=== PATIENT | male | born 1945 | race Caucasian/White ===

== ENCOUNTER → 2021-04-07 11:12 | Outpatient (BNVA) | payer MEDICARE, SELFPAY | PROVIDERS: PCP Internal Medicine Sports Medicine; Visit Provider Urology | DX: N40.1 Benign prostatic hyperplasia with lower urinary tract symptoms (principal); N52.01 Erectile dysfunction due to arterial insufficiency | CPT/HCPCS: 51798; 99212 ==

== ENCOUNTER 2022-03-01 10:33 | Outpatient (REF) | payer MEDICARE, SELFPAY ==
[2022-03-01 12:15] LABS: PSA,Total (Free>4and<10) 0.77 ng/mL (0.00-4.00)
== END 2022-03-01 10:34 | disposition home or self-care (01) ==
LOC: HO.HMGCLDS 10:33
PROVIDERS: PCP Pediatrics; Visit Provider Urology
DX: Z12.5 Encounter for screening for malignant neoplasm of prostate (principal); N13.8 Other obstructive and reflux uropathy; N40.1 Benign prostatic hyperplasia with lower urinary tract symptoms
CPT/HCPCS: 36415; 84153

== ENCOUNTER → 2022-03-09 08:04 | Outpatient (BNVA) | payer MEDICARE, SELFPAY | PROVIDERS: Visit Provider Urology | DX: N52.01 Erectile dysfunction due to arterial insufficiency (principal); N40.1 Benign prostatic hyperplasia with lower urinary tract symptoms; R39.15 Urgency of urination; R35.1 Nocturia; N39.0 Urinary tract infection, site not specified | CPT/HCPCS: 51798; 99212 ==

== ENCOUNTER → 2022-06-09 13:58 | Outpatient (BNVA) | payer MEDICARE, SELFPAY | PROVIDERS: PCP Pediatrics; Visit Provider Urology | DX: N52.01 Erectile dysfunction due to arterial insufficiency (principal); N40.1 Benign prostatic hyperplasia with lower urinary tract symptoms; Z79.899 Other long term (current) drug therapy | CPT/HCPCS: Q3014 ==

== ENCOUNTER 2023-02-16 08:48 | Outpatient (AMB) | payer MEDICARE, SELFPAY ==
--- NOTE | 2023-02-16 08:55 | A.OFFVIS_ITS ---
Intake Intake Visit Reasons: 6m follow up/PVR Intake Note: Patient is present for Follow Up PVR Urology Med: Finasteride, Terazosin Antibiotic Allergy: None Blood Thinner: Xarelto [facility]acy: [facility] PVR: 3ml Allergies No Known Allergies Allergy (Verified 02/16/23 08:58) HPI HPI Comments History of Present Illness Details ?Clifton SHARPE is a very pleasant male. He is a patient of Dr York. He is seen for the following urologic conditions. - lower urinary tract symptoms PVR low Urinary performance improved significantly after pacemaker placed a few weeks ago On terazosin 5 mg per day - otherwise gets some dizziness Cut finasteride back to Tuesday, Tuesday, Tuesday Lower Urinary Tract Symptoms:? Current visit is for?further evaluation of, lower urinary tract symptoms, predominate obstructive symptoms - Good response to maximum terazosin. Has noticed improved stream. Did have some dizziness.? Current treatment includes?07/07, terazosin 10mg, finasteride ? Prior treatments include?since 2009 flomax/tamsulosin, 5-alpha reductase ?- stopped 5AR due to SE concerns.? Prostate Symptom Score?Moderate (9-19), Bother 3 ? Symptoms include?07/07 , incomplete emptying, weak stream, nocturia (>2), and are progressing ?07/07 , urgency, nocturia (>2), and are improving.? Results from testing include? cystoscopy ?> 4 cm prostate urethral length, apple shaped intrusion 07/07 ? Prior Prostate Score?moderate.? PSA?2016 2.8, 03/11 0.77? Prostate volume?30-50gm.? Associated conditions? CAD ?Yes stent 2007 ? CVA ?No ? diabetes ?No ? Testing at next visit will include?bladder scan, uroflow.? PFSH Medical History Benign prostatic hyperplasia with lower urinary tract symptoms Erectile dysfunction due to arterial insufficiency Heart attack Hyperlipidemia Poor urinary stream Surgical History History of surgery Review of Systems Const Denies chills and Denies fever(s) Card Reports no additional complaints and Denies syncope Resp Denies cough GI Denies abdominal pain and Denies heartburn Reports as per HPI and Denies change in libido Neuro Denies syncope Psych Denies change in libido Endo Denies change in libido Physical Exam Const General: cooperative, healthy appearing, comfortable and no acute distress Orientation/consciousness: patient oriented x3 HEENT Face and sinus: Yes normal facial exam Mouth: moist mucous membranes Neck Neck: Yes normal visual inspection, Yes full ROM and Yes trachea midline Chest Chest palpation & inspection: normal inspection of the chest Resp Effort & Inspection: normal respiratory effort, able to speak in complete s entences and no respiratory distress GI Inspection: Yes normal to inspection Back/Spine/Pelvis Cervical Spine: normal cervical lordosis Thoracic/Lumbar Spine: thoracic and lumbar spine normal to inspection Skin General skin exam: no rashes or lesions noted Neuro General: patient oriented x3, gait normal, tone normal and moves all extremities Extrem General: Yes normal to inspection and Yes capillary refill normal Office Procedures Post Void Residual Post Residual Void Post Void Residual (PVR): 3 [id number] Void Residual by ultrasound Results AMB Urinalysis, Automated UA Leukoctes 0 [place]/uL Last Edit by VILLA Roper on 02/16/23 09:34 UA Nitrite Negative Last Edit by VILLA Roper on 02/16/23 09:34 UA Urobilinogen 0.2 mg/dL Last Edit by VILLA Roper on 02/16/23 09:3 4 UA Protein 0 mg/dL Last Edit by VILLA Roper on 02/16/23 09:34 UA pH 5.5 Last Edit by VILLA Roper on 02/16/23 09:34 UA Blood 10 Shawn/uL Last Edit by VILLA Roper on 02/16/23 09:34 UA Specific [place] 1.020 Last Edit by VILLA Roper on 02/16/23 09: 34 UA Ketone Negative Last Edit by Toshia Reyes, RMA on 02/16/23 09:34 UA Bilirubin 0 mg/dL Last Edit by Toshia Reyes, RMA on 02/16/23 09:34 UA Glucose 0 mg/dL Last Edit by Toshia Reyes, RMA on 02/16/23 09:34 Results Reviewed Results Reviewed: Laboratory Last Values Urine pH (Auto) 5.5 02/16/23 08:59 Specific [place] (Auto) 1.020 02/16/23 08:59 Urine Protein (Auto) 0 mg/dL 02/16/23 08:59 Glucose (UA)(Auto) 0 mg/dL 02/16/23 08:59 Urine Ketones (Auto) Negative 02/16/23 08:59 Urine Blood (Auto) 10 Shawn/uL 02/16/23 08:59 Urine Nitrite (Auto) Negative 02/16/23 08:59 Urine Bilirubin (Auto) 0 mg/dL 02/16/23 08:59 Urine Urobilinogen (Auto) 0.2 mg/dL 02/16/23 08:59 Leukocyte Esterase (Auto) 0 [place]/uL 02/16/23 08:59 Assessment & Plan Assessment & Plan (1) Urinary tract infection: Code(s): N39.0 - Urinary tract infection, site not specified (2) Erectile dysfunction due to arterial insufficiency: Code(s): N52.01 - Erectile dysfunction due to arterial insufficiency (3) Benign prostatic hyperplasia with lower urinary tract symptoms: Code(s): N40.1 - Benign prostatic hyperplasia with lower urinary tract symptoms Plan Twelve month follow-up Orders: Orders AMB Urinalysis Automated Today Z13.9 - Encounter for screening, unspecified AMB Post Void Residual by ultrasound Today N40.1 - Benign prostatic hyperplasia with lower urinary tract symptoms Prostate Specific Antigen 364 Days N40.1 - Benign prostatic hyperplasia with lower urinary tract symptoms Patient Instructions: Imaging studies, laboratory and physical exam results were discussed and reviewed in detail. No major barriers to patient understanding were identified. An opportunity to ask questions regarding the treatment plan was provided. All questions were answered. The patient expressed understanding and agreement with the above treatment plan. The patient is aware they should contact our office by phone for worsening of their current condition or the appearance of new urologic symptoms. Compliance is encouraged with any medications and followup testing that is ordered. It is a privilege to participate in the urologic care of your patient. If you have any questions or concerns regarding treatment for the above conditions, or other urologic issues, please do not hesitate to contact me. The office telephone contact is [phone]. This note is constructed using voice recognition software. While every effort has been made to ensure accuracy garment patternmaker errors may have been included. Yours sincerely, Dr Nathaniel Mora MD, [facility] - Urology Providers of Expert, Compassionate Care for the Genitourinary System Coding Level of Care Code Est Pt Level 3 (97984) Diagnoses Urinary tract infection N39.0 Erectile dysfunction due to arterial insufficiency N52.01 Benign prostatic hyperplasia with lower urinary tract symptoms N40.1 CPT Codes Post Residual Void - PVR CPT Code: 80870-Zmnu Void Residual by ultrasound ([id number])
== END 2023-02-16 10:06 | disposition home or self-care (01) ==
PROVIDERS: PCP Pediatrics; Visit Provider Urology
DX: N39.0 Urinary tract infection, site not specified (principal); N52.01 Erectile dysfunction due to arterial insufficiency; N40.1 Benign prostatic hyperplasia with lower urinary tract symptoms; Z13.9 Encounter for screening, unspecified
CPT/HCPCS: 99213

== ENCOUNTER → 2023-02-16 08:48 | Outpatient (BNVA) | payer MEDICARE, SELFPAY | PROVIDERS: Visit Provider Urology | DX: N39.0 Urinary tract infection, site not specified (principal); N52.01 Erectile dysfunction due to arterial insufficiency; N40.0 Benign prostatic hyperplasia without lower urinary tract symptoms | CPT/HCPCS: 51798; 81003; 99212 ==

== ENCOUNTER 2024-04-17 10:55 | Outpatient (AMB) | payer MEDICARE, SELFPAY ==
--- NOTE | 2024-04-17 11:27 | MHC.OFFVIS ---
Intake Visit Reasons: 1Y PVR/PSA(set) Intake Note: Patient is Present for PVR/PSA Urology Med:Terazosin, Finasteride Antibiotic Allergy:None Blood Thinner: Xarelto Last PVR: 3ml Todays PVR:59ml Patient states he is doing well on terazosi Recent PSA: 04/12/24 PSA: 0.9 Tire Beader Maker Required: No Accompanied by: Self / Same As Patient Allergies No Known Allergies Allergy (Verified 04/17/24 11:28) HPI Comments Details: ?Clifton SHARPE is a very pleasant male. He is a patient of Dr York. He is seen for the following urologic conditions. - lower urinary tract symptoms Twelve month follow-up Urinary performance improved significantly after pacemaker placed On terazosin 5 mg per day - otherwise gets some dizziness Finasteride back to Tuesday, Tuesday, Tuesday Would like to switch from sildenafil to tadalafil Prescription 20 mg on demand Lower Urinary Tract Symptoms:? Current visit is for?further evaluation of, lower urinary tract symptoms, predominate obstructive symptoms - Good response to maximum terazosin. Has noticed improved stream. Did have some dizziness.? Current treatment includes?07/07, terazosin 10mg, finasteride ? Prior treatments include?since 2009 flomax/tamsulosin, 5-alpha reductase ?- stopped 5AR due to SE concerns.? Prostate Symptom Score?Moderate (9-19), Bother 3 ? Symptoms include?07/07 , incomplete emptying, weak stream, nocturia (>2), and are progressing ?07/07 , urgency, nocturia (>2), and are improving.? Results from testing include? cystoscopy ?> 4 cm prostate urethral length, apple shaped intrusion 07/07 ? Prior Prostate Score?moderate.? PSA?2016 2.8, 03/11 0.77, 04/12 0.9 ? Prostate volume?30-50gm.? Associated conditions? CAD ?Yes stent 2006 ? CVA ?No ? diabetes ?No ? Testing at next visit will include?bladder scan, uroflow.? [facility] Medical History Benign prostatic hyperplasia with lower urinary tract symptoms Erectile dysfunction due to arterial insufficiency Heart attack Hyperlipidemia Poor urinary stream Surgical History History of surgery Review of Systems Const Denies chills and Denies fever(s) Card Reports no additional complaints and Denies syncope Resp Denies cough GI Denies abdominal pain and Denies heartburn Reports as per HPI and Denies change in libido Neuro Denies syncope Psych Denies change in libido Endo Denies change in libido Physical Exam Const General: cooperative, healthy appearing, comfortable and no acute distress Orientation/consciousness: patient oriented x3 HEENT Face and sinus: Yes normal facial exam Mouth: moist mucous membranes Neck Neck: Yes normal visual inspection, Yes full ROM and Yes trachea midline Chest Chest palpation & inspection: normal inspection of the chest Resp Effort & Inspection: normal respiratory effort, able to speak in complete sentences and no respiratory distress GI Inspection: Yes normal to inspection Back/Spine/Pelvis Cervical Spine: normal cervical lordosis Thoracic/Lumbar Spine: thoracic and lumbar spine normal to inspection Skin General skin exam: no rashes or lesions noted Neuro General: patient oriented x3, gait normal, tone normal and moves all extremities Extrem General: Yes normal to inspection and Yes capillary refill normal Office Procedures Post Void Residual Post Residual Void Post Void Residual (PVR): 59 [id number] Void Residual by ultrasound Results AMB Urinalysis, Automated UA Leukoctes 0 [place]/uL Last Edit by VILLA Roper on 04/17/24 11:38 UA Nitrite Negative Last Edit by VILLA Roper on 04/17/24 11:38 UA Urobilinogen 0.2 mg/dL Last Edit by VILLA oRper on 04/17/24 11:38 UA Protein 15 mg/dL Last Edit by VILLA Roper on 04/17/24 11:38 UA pH 5.5 Last Edit by VILLA Roper on 04/17/24 11:38 UA Blood 0 Shawn/uL Last Edit by Toshia Reyes, RMA on 04/17/24 11:38 UA Specific [place] 1.030 Last Edit by Toshia Reyes, RMA on 04/17/24 11:38 UA Ketone Negative Last Edit by Toshia Reyes, RMA on 04/17/24 11:38 UA Bilirubin 0 mg/dL Last Edit by Toshia Reyes, RMA on 04/17/24 11:38 UA Glucose 0 mg/dL Last Edit by Toshia Reyes, RMA on 04/17/24 11:38 Results Reviewed Results Reviewed: Laboratory Last Values Urine pH (Auto) 5.5 04/17/24 11:28 Specific [place] (Auto) 1.030 04/17/24 11:28 Urine Protein (Auto) 15 mg/dL 04/17/24 11:28 Glucose (UA)(Auto) 0 mg/dL 04/17/24 11:28 Urine Ketones (Auto) Negative 04/17/24 11:28 Urine Blood (Auto) 0 Shawn/uL 04/17/24 11:28 Urine Nitrite (Auto) Negative 04/17/24 11:28 Urine Bilirubin (Auto) 0 mg/dL 04/17/24 11:28 Urine Urobilinogen (Auto) 0.2 mg/dL 04/17/24 11:28 Leukocyte Esterase (Auto) 0 [place]/uL 04/17/24 11:28 Assessment & Plan Assessment & Plan (1) Benign prostatic hyperplasia with lower urinary tract symptoms: Code(s): N40.1 - Benign prostatic hyperplasia with lower urinary tract symptoms Category: Medical (2) Erectile dysfunction due to arterial insufficiency: Code(s): N52.01 - Erectile dysfunction due to arterial insufficiency Category: Medical Plan Trial tadalafil Three-month follow-up Orders: Orders AMB Urinalysis Automated 04/17/24 Z13.9 - Encounter for screening, unspecified AMB Post Void Residual by ultrasound 04/17/24 N40.1 - Benign prostatic hyperplasia with lower urinary tract symptoms Patient Instructions: Imaging studies, laboratory and physical exam results were discussed and reviewed in detail. No major barriers to patient understanding were identified. An opportunity to ask questions regarding the treatment plan was provided. All questions were answered. The patient expressed understanding and agreement with the above treatment plan. The patient is aware they should contact our office by phone for worsening of their current condition or the appearance of new urologic symptoms. Compliance is encouraged with any medications and followup testing that is ordered. It is a privilege to participate in the urologic care of your patient. If you have any questions or concerns regarding treatment for the above conditions, or other urologic issues, please do not hesitate to contact me. The office telephone contact is [phone]. This note is constructed using voice recognition software. While every effort has been made to ensure accuracy senior marketing associate errors may have been included. Yours sincerely, Dr Nathaniel Mora MD, [facility] - Urology Providers of Expert, Compassionate Care for the Genitourinary System Coding Level of Care Code Est Pt Level 3 (35042) Diagnoses Benign prostatic hyperplasia with lower urinary tract symptoms N40.1 Erectile dysfunction due to arterial insufficiency N52.01 CPT Codes Post Residual Void - PVR CPT Code: 98168-[id number] Void Residual by ultrasound ([id number])
== END 2024-04-17 12:09 | disposition home or self-care (01) ==
LOC: HO.HUSH 10:56
PROVIDERS: PCP Pediatrics; Visit Provider Urology
DX: N40.1 Benign prostatic hyperplasia with lower urinary tract symptoms (principal); N52.01 Erectile dysfunction due to arterial insufficiency
CPT/HCPCS: 99213

== ENCOUNTER → 2024-04-17 10:55 | Outpatient (BNVA) | payer MEDICARE, SELFPAY | PROVIDERS: PCP Pediatrics; Visit Provider Urology | DX: N40.1 Benign prostatic hyperplasia with lower urinary tract symptoms (principal); N13.8 Other obstructive and reflux uropathy; N52.01 Erectile dysfunction due to arterial insufficiency | CPT/HCPCS: 51798; 81003; 99212 ==

== ENCOUNTER 2024-07-17 09:09 | Outpatient (AMB) | payer MEDICARE, SELFPAY ==
--- NOTE | 2024-07-17 09:10 | MHC.OFFVIS ---
Intake Visit Reasons: [employer] Review(Tadalafil) Intake Note: Patient is present for [facility] REVIEW Urology Medication:TERAZOSIN,FINASTERIDE,SILDENAFIL Antibiotic Allergy:NONE Blood Thinner:RIVAROXABAN Resources Representative Required: No Allergies No Known Allergies Allergy (Verified 07/17/24 09:11) HPI Comments Details: ?Clifton SHARPE is a very pleasant male. He is a patient of Dr York. He is seen for the following urologic conditions. - lower urinary tract symptoms - erectile dysfunction Telemedicine Evaluation 15 min Consultation [employer] Ru Video Urinary performance improved significantly after pacemaker placed On terazosin 5 mg per day - otherwise gets some dizziness Finasteride back to Tuesday, Tuesday, Tuesday Switched erectile medications to Cialis 20 mg on demand Also will try switching from terazosin to alfuzosin to see if this has less impact on dizziness in energy Lower Urinary Tract Symptoms:? Current visit is for?further evaluation of, lower urinary tract symptoms, predominate obstructive symptoms - Good response to maximum terazosin. Has noticed improved stream. Did have some dizziness.? Current treatment includes?07/07, terazosin 10mg, finasteride ? Prior treatments include?since 2009 flomax/tamsulosin, 5-alpha reductase ?- stopped 5AR due to SE concerns.? Prostate Symptom Score?Moderate (9-19), Bother 3 ? Symptoms include?07/07 , incomplete emptying, weak stream, nocturia (>2), and are progressing ?07/07 , urgency, nocturia (>2), and are improving.? Results from testing include? cystoscopy ?> 4 cm prostate urethral length, apple shaped intrusion 07/07 ? Prior Prostate Score?moderate.? PSA?2016 2.8, 03/11 0.77, 04/12 0.9 ? Prostate volume?30-50gm.? Associated conditions? CAD ?Yes stent 2006 ? CVA ?No ? diabetes ?No ? Testing at next visit will include?bladder scan, uroflow.? PFSH Medical History Benign prostatic hyperplasia with lower urinary tract symptoms Erectile dysfunction due to arterial insufficiency Heart attack Hyperlipidemia Poor urinary stream Surgical History History of surgery Review of Systems Const All systems reviewed & are unremarkable except as noted in HPI and below Reports no additional complaints Resp Reports no additional complaints GI Reports no additional complaints Reports as per HPI Musc Reports no additional complaints Physical Exam Telemedicine evaluation Appropriate responses Regular breathing rate and rhythm HEENT Head: Yes normal to inspection Ears: hearing grossly normal bilaterally Eyes General: appearance normal, both eyes and all related structures Neck Neck: Yes normal visual inspection Chest Chest palpation & inspection: normal inspection of the chest Resp Effort & Inspection: normal respiratory effort and able to speak in complete sentences Telehealth Telehealth Telehealth Platform: [employer] Location of provider rendering services: practice address Location of patient: address on file Patient Identification confirmed using: Name, : Yes Telehealth method: video Patient verbally consented to treatment: Yes Patient verbally consented to billing insurance company: Yes Patient informed of any privacy concerns related to visit: Yes Minutes spent on Phone/Video with Pt.: 15 Assessment & Plan Assessment & Plan (1) Erectile dysfunction due to arterial insufficiency: Code(s): N52.01 - Erectile dysfunction due to arterial insufficiency Category: Medical (2) Benign prostatic hyperplasia with lower urinary tract symptoms: Code(s): N40.1 - Benign prostatic hyperplasia with lower urinary tract symptoms Category: Medical Plan Six-month follow-up Medications: New alfuzosin ER Take before bedtime 10 mg PO BEDTIME 30 days 30 tabs 1RF N40.1 - Benign prostatic hyperplasia with lower urinary tract symptoms tadalafil On demand medication take 60 minutes before intended [id number] 20 mg PO ONCE 30 days PRN 30 tabs 0RF sexual activity N52.01 - Erectile dysfunction due to arterial insufficiency Patient Instructions: Imaging studies, laboratory and physical exam results were discussed and reviewed in detail. No major barriers to patient understanding were identified. An opportunity to ask questions regarding the treatment plan was provided. All questions were answered. The patient expressed understanding and agreement with the above treatment plan. The patient is aware they should contact our office by phone for worsening of their current condition or the appearance of new urologic symptoms. Compliance is encouraged with any medications and followup testing that is ordered. It is a privilege to participate in the urologic care of your patient. If you have any questions or concerns regarding treatment for the above conditions, or other urologic issues, please do not hesitate to contact me. The office telephone contact is [phone]. This note is constructed using voice recognition software. While every effort has been made to ensure accuracy mass communications instructor errors may have been included. Yours sincerely, Dr Nathaniel Mora MD, [facility] - Urology Providers of Expert, Compassionate Care for the Genitourinary System Coding Level of Care Code Tele Est Pt Level 4 (95935) Diagnoses Erectile dysfunction due to arterial insufficiency N52.01 Benign prostatic hyperplasia with lower urinary tract symptoms N40.1
--- OUTSIDE RECORDS SUMMARY | 2024-07-17 09:35 | XMS_ITS | Clinical Summary ---
Author Organization [facility] [address] [facility] lding Address [address] [place] [address] Phone Care Team Providers Care [employer] Material Inspector Name Role Phone Tristin Caldwell MD Primary Care Provider [phone] Allergies No known active allergies Medications Medication Sig Dispensed Refills Start Date End Date Status atorvastatin (LIPITOR) 80 mg tablet TAKE 1 TABLET BY MOUTH EVERY DAY IN THE EVENING 90 tablet 1 04/25/2024 Active aspirin 81 mg EC tablet Take 1 tablet (81 mg total) by mouth. Active atorvastatin (LIPITOR) 80 mg tablet Take 1 tablet (80 mg total) by mouth 1 (one) time each day in the evening. Active finasteride (PROSCAR) 5 mg tablet Take 1 tablet (5 mg total) by mouth 1 (one) time each day. Active terazosin (HYTRIN) 5 mg capsule Take 1 capsule (5 mg total) by mouth. at bedtime Active sildenafil (REVATIO) 20 mg tablet TAKE 1-2 TABLETS BY MOUTH AT BEDTIME NEEDED FOR ERECTILE DYSFUNCTION. 09/07/2023 Active Xarelto 20 mg tablet TAKE 1 TABLET BY MOUTH DAILY WITH EVENING MEAL 90 tablet 1 06/26/2024 Active famotidine (PEPCID) 40 mg tablet Take 1 tablet (40 mg total) by mouth 1 (one) time each day. 90 tablet 1 06/26/2024 Active cholecalciferol (VITAMIN D-3) 50 mcg (2,000 unit) capsule Take 1 capsule (2,000 Units total) by mouth 1 (one) time each day. 90 capsule 1 06/26/2024 Active cholecalciferol (VITAMIN D-3) 50 mcg (2,000 unit) capsule Take 1 capsule (2,000 Units total) by mouth 1 (one) time each day. 04/09/2024 5 Discontinued(Reor belle) famotidine (PEPCID) 40 mg tablet Take 1 tablet (40 mg total) by mouth 1 (one) time each day. 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 LV systolic function is normal. Will continue current regimen. Due for lipid profile. Assessment & Plan (07/16/2024 4:16 PM EST): Orders: ECG 12 lead CKD (chronic kidney disease), stage III 05/16/20 24 Rheumatoid arthritis 05/16/2024 Overview (05/16/2024): Since age 30, congenital arm deformations. Hypertension 10/10/2023 Pacemaker 10/10/2023 Anemia 08/20/2022 Overview (05/16/2024): 2. Mild, stable. Iron etc normal. B12 low normal Syncope 04/16/2022 Overview (05/16/2024): Last Assessment & Plan: Most likely caused by conversion pauses. He was documented to have pulse rate 20-30's with syncope and EKG immediate post syncope showed sinus rate of 40s. He was also hypotensive. His heart rate with atrial fibrillation was slightly higher and we could not give medication due to sinus bradycardia. There is enough evidence that he would benefit from pacemaker. We will arrange dual-chamber pacemaker. 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 Ideally, would like to start him on low-dose metoprolol, however his symptoms suggest he might be mildly hypotensive after taking terazosin. Will continue to monitor. Fatigue 04/15/2021 Overview (05/16/2024): Last Assessment & Plan: Could be medication related. His last ischemia work-up was 4 years ago. We will arrange exercise echocardiogram stress test. Osteoarthritis of right knee 01/09/2020 GERD (gastroesophageal reflux disease) 9 Hypercholesteremia 03/02/2019 Overview (05/16/2024): Last Assessment & Plan: Well-controlled. Old FL (myocardial infarction) 03/02/2019 Osteoarthritis 03/02/2019 Overview (05/16/2024): R knee BPH (benign prostatic hyperplasia) 11/23/2018 Overview (05/16/2024): Seen by urology at the [facility] 01/11/2020 Erectile dysfunction 11/23/2018 Encounters Date Type Department Care Team Description 07/16/2024 3:30 PM EST Office Visit [facility] [address] [place] [address] Dk Terrazas MD Coronary artery disease, unspecified vessel or lesion type, unspecified whether angina present, unspecified whether chippewa-cree or transplanted heart (Primary Dx) 07/13/2024 Telephone Adult Medicine - [place] [address] [place] [address] Tristin Caldwell MD Referral for 07/16/2024 (To [facility]) 07/10/2024 9:50 AM EST Ancillary Procedure [facility] [address] [place] [address] 05/24/2024 4:30 PM EST Office Visit Adult Medicine - [facility] [address] [place] [address] Tristin Caldwell MD Cough, unspecified type (Primary Dx) 05/24/2024 Telephone Adult Medicine - [place] [address] [place] [address] Tristin Caldwell MD from Last 3 Months Immunizations Name Administration Dates Next Due Influenza trivalent, 0.5mL (Fluad) 65yo and olde r 04/19/2022,03/08/2020 Pfizer (ages 12 & older) Bivalent, COVID-19 03/22 Pfizer SARS-CoV-2 COVID-19, mRNA, LNP-S, preservative free 09/25/2021,03/22/2021 Pneumococcal polysaccharide 23 valent (Pneumovax 23) 2yo and older 02/17/2021 Td Tetanus diptheria (Tdvax) 7yo and older 08/06 Surgical History Surgery Date Site/Laterality Comments CHOLECYSTECTOMY 2010 PROCEDURE: HISTORICAL CHOLECYSTECTOMY TONSILLECTOMY 1951 PROCEDURE: HISTORICAL TONSILLECTOMY ANGIOPLASTY 2006 PROCEDURE: HISTORICAL ANGIOPLASTY W/STENT Medical History Medical History Date Comments BPH (benign prostatic hyperplasia) DX:BPH (benign prostatic hyperplasia) Erectile dysfunction DX:Erectile dysfunction CAD (coronary artery disease) DX :CAD (coronary artery disease); COMMENT: s/p PCI 2006, last stress 2017. Follows with Dr Terrazas CKD (chronic kidney disease) , stage III (CMS/HCC) DX:CKD (chronic kidney disea se), stage III (HCC) Rheumatoid arthritis (CMS/HCC) D X:Rheumatoid arthritis (HCC); COMMENT: Since age 30, congenital arm deformations. GERD (gastroesophageal reflux disease) DX:GERD (gastroesophageal reflux disease); COMMENT: Dr Bower, last colonoscopy 2012 Hyperlipidemia 03/02/2019 DX:Hyperlipidemi a Palencia's esophagus DX:Palencia's esophagus; COMMENT: w/ esophageal stricture Old FL (myocardial infarction) 03/02/2019 D X:Old FL (myocardial infarction) Osteoarthritis 03/02/2019 DX:Osteoarthriti s; COMMENT: R knee Family History Medical History Relation Name Comments No Known Problems Daughter 1 No Known Problems Daughter 2 No Known Problems Father No Known Problems Mother Alcohol abuse Sister Lung cancer Sister Other: tobacco abuse Sister No Known Problems Son 1 No Known Problems Son 2 Drug abuse Son 3 Relation Name Status Comments Daughter 1 Alive Daughter 2 Alive Father Mother Sister Alive Son 1 Alive Son 2 Alive Son 3 Alive Social History Tobacco Use Types Packs/Day Years Used Date Smoking Tobacco: Never Smokeless Tobacco: Never Alcohol Use Standard Drinks/Week Comments No 0 (1 standard drink = 0.6 oz pur e alcohol) Sex and Gender Information Value Date Recorded Sex Assigned at Not on file Gender Identity Not on file Sexual Orientation Not on file Job Start Date Occupation Industry Not on file Not on file Not on file Obstetrics History Last Filed Vital Signs Vital Sign Reading Time Taken Comments Blood Pressure 130/82 07/16/2024 3:07 PM EST Pulse 63 07/16/2024 3:07 PM EST Temperature 36.9 ??C (98.4 ??F) 05/24/2024 4:26 PM ES T Respiratory Rate - - Oxygen Saturation 96% 07/16/2024 3:07 PM EST Inhaled Oxygen Concentration - - Weight 84.8 kg (187 lb) 07/16/2024 3:07 PM EST Height 180.3 cm (5' 11 ) 07/16/2024 3:07 PM EST Body Mass Index 26.08 07/16/2024 3:07 PM EST Plan of Treatment Upcoming Encounters Date Type Department Care Team (Late st Contact Info) Description 07/23/2024 8:30 AM EST Ancillary Procedure [facility] - [facility] [address] [facility] [address] [place] [address] 10/16/2024 1:15 PM EDT Office Visit Adult Medicine - [place] [address] [place] [address] Tristin Caldwell MD [address] [place] [address] Health Maintenance Due Date Last Done Comments RSV Immunization Patients 60+ Years Old (1 - 1-dose 75+ series) 2021 Pneumococcal Vaccine: 65+ Years (2 of 2 - PCV) 02/17/2022 02/17/2021 Depression Screening 05/29/2022 Falls Risk Assessment 05/29/2022 Hepatitis C Screening 05/29/2022 Medicare Annual Wellness Visit 05/29/2022 Social Influencers of Health Screening 05/29/2022 Influenza Vaccine (#1) 2024 04/19/2022, 2019 COVID-19 Vaccine ( season) 2024 02/26/2024, 08/21/2023, 03/26/2023, Additional history exists Hypertension/CHF/CAD Annual BMP Blood Test 03/09/2025 03/09/2024, 03/09/2024, 03/09/2024, Additional history exists Cholesterol Screening (Lipid Panel) 04/12/2029 04/12/2024, 04/12/2024 DTaP,Tdap,and Td Vaccines (3 - Td or Tdap) 08/06/2031 08/06/2021, 12/17/2003 Zoster Vaccines Completed 03/26/2023, 09/25/2021 HIB Vaccines Aged Out No longer eligi ble based on patient's age to complete this topic HPV Vaccines Aged Out No longer eligi ble based on patient's age to complete this topic Hepatitis A Vaccines Aged Out No long er eligible based on patient's age to complete this topic Hepatitis B Vaccines Aged Out No long er eligible based on patient's age to complete this topic IPV Vaccines Aged Out No longer eligi ble based on patient's age to complete this topic MMR Vaccines Aged Out No longer eligi ble based on patient's age to complete this topic Meningococcal ACWY Vaccine Aged Out N o longer eligible based on patient's age to complete this topic RSV Immunization Patients Under 20 months Aged Out No longer eligible based on patient's age to complete this topic Varicella Vaccines Aged Out No longer eligible based on patient's age to complete this topic Medical Devices Implanted Type Area Tower Watchman Device Identifier Shelf Expiration Date Model / Serial / Lot Medt-Card Harjit Xt Dr Navas [id number] Implanted: (Quantity not on file) Cardiac Pacemaker [employer] - CARDIAC RHYTH-CRD HARJIT XT DR NAVAS [id number] / [id number] / Procedures Procedure Name Priority Date/Time Associated Diagnosis Comments ECG 12-LEAD Routine 07/16/2024 3:15 PM EST Coronary artery disease, unspecified vessel or lesion type, unspecified whether angina present, unspecified whether chippewa-cree or transplanted heart CARDIAC DEVICE CHECK- REMOTE- MURJ Routine 07/10/2024 9:46 AM EST LIPID PANEL Routine 04/12/2024 ANNUAL BMP BLOOD TEST Routine 03/09/2024 from Last 3 Months or Most Recently Relevant to Health Maintenance Results * ECG 12 lead (07/16/2024 3:15 PM EST) Ventricular Rate ECG 63 BPM GEMUSE Atrial Rate 63 BPM GEMUSE P-R Interval 210 ms GEMUSE QRS Duration 86 ms GEMUSE Q-T Interval 410 ms GEMUSE QTc 419 ms GEMUSE P Wave [place] 30 degrees GEMUSE R [place] 69 degrees GEMUSE T [place] 53 degrees GEMUSE ECG Interpretation Atrial-paced rhythm with prolonged AV conduction Abnormal ECG No previous ECGs available Confirmed by Brianna TERRAZAS, DK ([id number]) on 07/16/2024 4:08:59 PM GEMUSE 07/16/2024 3:15 PM EST 07/16/2024 4:08 PM EST Dk Terrazas MD ECG ORDERABLES GEMUSE * Cardiac device check - Remote- MURJ (07/10/2024 9:46 AM EST) Date Time Interrogation Session [id number] CV DEVICE CHECK Type Interrogation Session Remote CV DEVICE CHECK Implantable Pulse Generator Tower Watchman TONY CV DEVICE CHECK Implantable Pulse Generator Type IPG CV DEVICE CHECK Implantable Pulse Generator Model Harjit XT DR NAVAS [id number] CV DEVICE CHECK Implantable Pulse Generator Serial Number [id number] CV DEVICE CHECK Implantable Pulse Generator Implant Date [id number] CV DEVICE CHECK Battery Remaining Longevity 140.0 CV DEVICE CHECK Battery Voltage 3.030 CV D EVICE CHECK Battery BEADER Trigger 2.625 CV DEVICE CHECK Battery Status Middle of Service CV DEVICE CHECK González Statistic RA Percent Paced 81.51 CV DEVICE CHECK González Statistic RV Percent Paced 0.05 CV DEVICE CHECK Atrial Tachy Statistic AT/AF [place] Percent 0.00 CV DEVICE CHECK Lead Channel Sensing Intrinsic Amplitude 2.375 CV DEVICE CHECK Lead Channel Setting Sensing Sensitivity 0.30 CV DEVICE CHECK Lead Channel Impedance Value 532 CV DEVICE CHECK Lead Channel Pacing Threshold Amplitude 0.500 CV DEVICE CHECK Lead Channel Pacing Threshold Pulse Width 0.4 CV DEVICE CHECK Lead Channel RA Pacing Threshold Date 2024-07-01 CV DEVICE CHECK Lead Channel Setting Pacing Amplitude 1.500 CV DEVICE CHECK Lead Channel Setting Pacing Pulse Width 0.4 CV DEVICE CHECK Lead Channel Sensing Intrinsic Amplitude 7.500 CV DEVICE CHECK Lead Channel Setting Sensing Sensitivity 0.90 CV DEVICE CHECK Lead Channel Impedance Value 418 CV DEVICE CHECK Lead Channel Pacing Threshold Amplitude 0.625 CV DEVICE CHECK Lead Channel Pacing Threshold Pulse Width 0.4 CV DEVICE CHECK Lead Channel RV Pacing Threshold Date 2024-07-01 CV DEVICE CHECK Lead Channel Setting Pacing Amplitude 2.000 CV DEVICE CHECK Lead Channel Setting Pacing Pulse Width 0.4 CV DEVICE CHECK González Setting Mode (NBG Code) AAIR<=>DDDR CV DEVICE CHECK González Setting Lower Rate Limit 60 CV DEVICE CHECK González Setting AT Mode Switch Rate 171 CV DEVICE CHECK González Setting Maximum Tracking Rate 130 CV DEVICE CHECK González Setting Maximum Sensor Rate 130 CV DEVICE CHECK González Setting PAV Delay 180 CV DEVICE CHECK González Setting OMAR Delay 150 CV DEVICE CHECK Zone Setting Type Category AT/AF CV DEVICE CHECK Rate 171 CV DEVICE CHECK Therapies Some Rx Off CV DEVIC E CHECK Zone Setting Status Monitor CV DEVICE CHECK Zone ID 2 CV DEVICE CHECK Zone Setting Type Category VT CV DEVICE CHECK Rate 150 CV DEVICE CHECK Zone Setting Status ENABLED CV DEVICE CHECK Zone ID 6 CV DEVICE CHECK Date of Service 2024-07-13 CV DEVICE CHECK Anatomical Region Laterality Modality Device Interroga tion 07/01/2024 11:3 1 PM EST Impressions 07/10/2024 9:43 AM EST Normal Remote: With Events * Normal Device Function * Events or Alerts: 6 *Sinus Tachycardia * Battery: OK, 11.67 yrs * Sensing, impedance and thresholds reviewed * Programmed parameters reviewed * Presenting rhythm reviewed * Heart Rate Histograms reviewed Narrative Procedure Note Jaswinder Barnes MD - 07/10/2024 IMPRESSION: Normal Remote: With Events * Normal Device Function * Events or Alerts: 6 *Sinus Tachycardia * Battery: OK, 11.67 yrs * Sensing, impedance and thresholds reviewed * Programmed parameters reviewed * Presenting rhythm reviewed * Heart Rate Histograms reviewed Jaswinder Barnes MD CV IMPLANTABLE CARDI AC DEVICE PROCEDURES * (ABNORMAL) Lipid panel (04/12/2024) LDL/HDL Ratio 2 0 - 4 Triglycerides 75 0 - 150 mg/dL Cholesterol 88 0 - 200 mg/dL HDL 39(A) 40 mg/dL LDL Cholesterol 34 0 - 100 mg/dL Blood Venous blood specimen / Unknown Historical Provider LAB BLOOD ORDERAB LES * Annual BMP Blood Test (03/09/2024) Annual BMP Blood Test abstracted Historical Provider [facility] from Last 3 Months or Most Recently Relevant to Health Maintenance Care Teams [employer] Material Inspector Relationship Specialty Start Date End Date Tristin Caldwell MD [facility] [address] [place] [id number] PCP - General 04/27/22
--- OUTSIDE RECORDS SUMMARY | 2024-07-17 09:36 | XMS_ITS | Encounter Summary ---
Author Organization [facility] Address [address] [place] [address] Care Team Providers Care Lasting Machine Operator Bed Name Role Phone Tristin Caldwell MD Primary Care Provider [phone] Reason for Visit * Reason Comments Follow-up Encounter Details Date Type Department Care Team ([facility] st Contact Info) Description 07/16/2024 3:30 PM EST Office Visit [facility] - [facility] [address] [facility] [address] [place] [id number] Senia Terrazas MD [address] [place] [address] Coronary artery disease, unspecified vessel or lesion type, unspecified whether angina present, unspecified whether morongo or transplanted heart (Primary Dx) Social History Tobacco Use Types Packs/Day Years [...] file Not on file Not on file documented as of this encounter Last Filed Vital Signs Vital Sign Reading Time Taken Comments Blood Pressure 130/82 07/16/2024 3:07 PM EST Pulse 63 07/16/2024 3:07 PM EST Temperature - - Respiratory Rate - - Oxygen Saturation 96% 07/16/2024 3:07 PM EST Inhaled Oxygen Concentration - - Weight 84.8 kg (187 lb) 07/16/2024 3:07 PM EST Height 180.3 cm (5' 11 ) 07/16/2024 3:07 PM EST Body Mass Index 26.08 07/16/2024 3:07 PM EST documented in this encounter Progress Notes * Senia Terrazas MD - 07/16/2024 3:30 PM ESTAssociated Problem(s): CAD (coronary artery disease) Orders: ECG 12 lead * Senia Terrazas MD - 07/16/2024 3:30 PM EST Images from the original note were not included. [facility] PCP: Tristin Caldwell MD HPI: This is a pleasant 78 years old male with a past medical history of STEMI status post PCI to LAD With a bare-metal stent in 2006. He also had rheumatoid arthritis. He had transient reduced left ventricular systolic function which has completely recovered later on. He did very well with stress test and last stress test was in March 2022. He was admitted to [facility] in early February 2022 for new onset of atrial fibrillation with a slight rapid heart rate with shortness of breath. [place] [facility] [place] and was noted to have a low pulse 20-30s and hypotension down to 60s. He was brought tothe room and EKG demonstrated sinus rhythm with heart rate 40s. He was seen by Dr. Michelle and was suspicious to have a conversion pause. He had a pacemaker implantation in June 2022. History of Present Illness He has been engaging in regular exercise on a treadmill, maintaining an incline of 8.5 degrees for approximately 1 hour at a speed of 3.5 miles per hour. He does not monitor his pulse during these sessions. He is currently on anticoagulant therapy to prevent stroke. He was also prescribed a beta-cecy to manage his heart rate, but this medication was subsequently discontinued. He reports no adverse effects from his cholesterol medication. Most recent lipid profile was excellent. ACTIVE MEDICATIONS: Outpatient Medications Marked as Taking for the 07/16/24 encounter (Office Visit) with Senia Terrazas MD Medication Sig Dispense Refill aspirin 81 mg EC tablet Take 1 tablet (81 mg total) by mouth. atorvastatin (LIPITOR) 80 mg tablet TAKE 1 TABLET BY MOUTH EVERY DAY IN THE EVENING 90 tablet 1 cholecalciferol (VITAMIN D-3) 50 mcg (2,000 unit) capsule Take 1 capsule (2,000 Units total) by mouth 1 (one) time each day. 90 capsule 1 famotidine (PEPCID) 40 mg tablet Take 1 tablet (40 mg total) by mouth 1 (one) time each day. 90 tablet 1 finasteride (PROSCAR) 5 mg tablet Take 1 tablet (5 mg total) by mouth 1 (one) time each day. sildenafil (REVATIO) 20 mg tablet TAKE 1-2 TABLETS BY MOUTH AT BEDTIME NEEDED FOR ERECTILE DYSFUNCTION. terazosin (HYTRIN) 5 mg capsule Take 1 capsule (5 mg total) by mouth. at bedtime Xarelto 20 mg tablet TAKE 1 TABLET BY MOUTH DAILY WITH EVENING MEAL 90 tablet 1 PAST MEDICAL HISTORY: Patient Active Problem List Diagnosis Anemia Atrial fibrillation (CMS/HCC) Palencia's esophagus BPH (benign prostatic hyperplasia) CAD (coronary artery disease) CKD (chronic kidney disease), stage III (CMS/HCC) Erectile dysfunction Fatigue GERD (gastroesophageal reflux disease) Hypercholesteremia Hypertension Old CA (myocardial infarction) Osteoarthritis Osteoarthritis of right knee Pacemaker Rheumatoid arthritis (CMS/HCC) Syncope Tachycardia-bradycardia (CMS/HCC) ALLERGIES: No Known Allergies FAMILY HISTORY: Not contributory. SOCIAL HISTORY: Social History Tobacco Use Smoking status: Never Smokeless tobacco: Never Substance Use Topics Alcohol use: No ROS: All pertinent review of systems as stated in HPI otherwise reviewed and are negative. PHYSICAL EXAM: Physical Exam Vitals: 07/16/24 1507 BP: 130/82 BP Location: Left arm Patient Position: Sitting BP Cuff Size: Adult Pulse: 63 SpO2: 96% Weight: 84.8 kg (187 lb) Height: 1.803 m (71 ) APPEARANCE: Alert and in no acute distress EYES: PERRLA, conjunctiva and sclera normal. NECK: Neck supple, no adenopathy, thyroid symmetric and of normal size HEART: RRR with normal S1 and S2, no murmurs, no gallops, no JVD appreciated LUNG: clear to auscultation in all diaz ABDOMEN: Bowel sounds normoactive, soft, non-tender, without organomegaly or palpable masses EXTREMITIES: Extremities warm and well perfused without clubbing, cyanosis, or edema NEURO: Awake, alert and oriented SKIN: Skin color, texture, turgor normal. No rashes or lesions. MUSCULOSKELETAL: Gait normal EKG: Results Laboratory Studies Cholesterol levels are excellent. TESTING: Lab Results Component Value Date CHOL 88 04/12/2024 Lab Results Component Value Date HDL 39 (A) 04/12/2024 No results found for: LDLCALC Lab Results Component Value Date TRIG 75 04/12/2024 No results found for: CHOLHDL ASSESSMENT/PLAN: Assessment & Plan Coronary artery disease, unspecified vessel or lesion type, unspecified whether angina present, unspecified whether morongo or transplanted heart Orders: ECG 12 lead He is doing very well from coronary artery standpoint and exercise extensively with no symptom. Hislipid profile is excellent. Will continue current regimen. His creatinine level slightly higher and I suspect he could be somewhat dehydrated, especially after exercise. Encouraged him to drink adequate water. Assessment & Plan 2. Atrial fibrillation. He has a history of atrial fibrillation and is currently on a blood thinner to prevent stroke. He was on a beta-cecy, which was later discontinued due to bradycardia. His A-fib rate was not very fast. 2. Hypercholesterolemia. His cholesterol levels from a few months ago were excellent. He reports no side effects from his current cholesterol medication. The [facility] team will continue to co-manage this patient following the plan of care as established by my initial visit and as per AHA guidelines for ongoing management and surveillance of CAD, PAF This will include medication titration, initiation of appropriate medications and further titration, and diagnostic studies to manage this disease process. I have obtained verbal consent from Clifton Ritchie prior to the recording. I have advised Clifton Ritchie that he may refuse the recording and require the recording to be turned off at any time during this encounter. documented in this encounter Plan of Treatment Upcoming Encounters Date Type Department Care Team (Late st Contact Info) Description 07/23/2024 8:30 AM EST Ancillary Procedure [facility] - [address] [facility] [address] [place] [address] 10/16/2024 1:15 PM EDT Office Visit Adult Medicine - [place] [address] [place] [address] Tristin Caldwell MD [address] [place] [address] documented as of this encounter Procedures Procedure Name Priority Date/Time Associated Diagnosis Comments ECG 12-LEAD Routine 07/16/2024 3:15 PM EST Coronary artery disease, unspecified vessel or lesion type, unspecified whether angina present, unspecified whether morongo or transplanted heart documented in this encounter Results * ECG 12 lead (07/16/2024 3:15 PM EST) Ventricular Rate ECG 63 BPM GEMUSE Atrial Rate 63 BPM GEMUSE P-R Interval 210 ms GEMUSE QRS Duration 86 ms GEMUSE Q-T Interval 410 ms GEMUSE QTc 419 ms GEMUSE P Wave [place] 30 degrees GEMUSE R [place] 69 degrees GEMUSE T [place] 53 degrees GEMUSE ECG Interpretation Atrial-paced rhythm with prolonged AV conduction Abnormal ECG No previous ECGs available Confirmed by Brianna TERRAZAS, SENIA ([id number]) on 07/16/2024 4:08:59 PM GEMUSE 07/16/2024 3:15 PM EST 07/16/2024 4:08 PM EST Senia Terrazas MD ECG ORDERABLES GEMUSE documented in this encounter Visit Diagnoses Diagnosis Coronary artery disease, unspecified vessel or lesion type, unspecified whether angina present, unspecified whether morongo or transplanted heart- Primary Encounter for adjustment or management of cardiac device documented in this encounter Care Teams Lasting Machine Operator Bed Relationship Specialty Start Date End Date Tristin Caldwell MD [address] [place] [address] PCP - General 04/27/22 documented as of this encounter
--- OUTSIDE RECORDS SUMMARY | 2024-07-17 09:36 | XMS_ITS | Clinical Summary ---
Author Organization [facility] Address [address] [place] [address] Care Team Providers Care Weed Controller Name Role Phone Juvencio Gar Primary Care Provider Unavailefren e Immunizations Name Administration Dates Next Due Td (adult), adsorbed 12/17/2003 Social History Tobacco Use Types Packs/Day Years Used Date Smoking Tobacco: Never Assessed Sex and Gender Information Value Date Recorded Sex Assigned at Not on file Legal Sex Male 8:23 AM EDT Gender Identity Not on file Sexual Orientation Not on file Plan of Treatment Health Maintenance Due Date Last Done Comments Hepatitis C Screening 1945 Pneumococcal 50+ years (1 of 1 - PCV) 1996 Zoster (Shingrix) (1 of 2) 1996 DTaP/Tdap/Td (1 - Tdap) 12/18/2003 12/17/2003 RSV (1 - 1-dose 75+ series) 2021 COVID-19 Vaccine ( - 2023-2 5 season) 2024 Influenza (#1) 2024 HPV Vaccine Aged Out No longer eligi ble based on patient's age to complete this topic Hep A Aged Out No longer eligi ble based on patient's age to complete this topic Hep B Aged Out No longer eligi ble based on patient's age to complete this topic Hib Aged Out No longer eligi ble based on patient's age to complete this topic Meningococcal ACWY Aged Out No longer eligible based on patient's age to complete this topic Zoster (Zostavax) Discontinued Insurance [employer] Care Teams Weed Controller Relationship Specialty Start Date End Date Juvencio Gar PCP - General 09/11/05
--- OUTSIDE RECORDS SUMMARY | 2024-07-17 09:36 | XMS_ITS | Clinical Summary ---
Author Organization [facility] Address [address] [facility] [address] [place] [address] Phone Care Team Providers Care Continuous Mining Machine Company Miner Name Role Phone Landon Caldwell MD Primary Care Provider + Allergies No known active allergies Medications aspirin (ST KARYN) 81 MG EC tablet Take 1 tablet by mouth 1 (one) time each day Active atorvastatin (Lipitor) 80 MG tablet Take 1 tablet by mouth 1 (one) time each day Active famotidine (Pepcid) 40 MG tablet Take 1 tablet by mouth 1 (one) time each day 7 Active finasteride (PROSCAR) 5 MG tablet Take 5 mg by mouth every other day 1 Active sildenafil (REVATIO) 20 MG tablet TAKE 1 TABLET BY MOUTH AT BEDTIME NEEDED FOR ERECTILE DYSFUNCTION 1 Active Xarelto 20 MG tablet TAKE 1 TABLET BY MOUTH EVERY EVENING WITH SUPPER - MUST SEE PCP FOR REFILLS 2 Active terazosin (HYTRIN) 5 MG capsule TAKE 2 CAPSULE BY MOUTH EVERY EVENING 180 capsule 4 3 Active Additional Information Patient taking differently: 5 mg Oral Nightly, Reported on 03/10/2023 cholecalciferol (VITAMIN D-3) 50 MCG (1999) capsule TAKE 1 CAPSULE BY MOUTH EVERY DAY 90 capsule 3 3 Active Active Problems Problem Noted Date Diagnosed Date Atrial fibrillation 03/03/2022 Overview (03/10/2022): hosp 9/22 Fatigue 04/15/2021 Overview (03/10/2022): Last Assessment & Plan: Could be medication related. His last ischemia work-up was 4 years ago. We will arrange exercise echocardiogram stress test. Patient encounter status 02/17/2021 Overview (03/10/2022): Per pt 11/07. Neg. 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 I discussed with him that if is taking sildenafil, he cannot take nitro/nitrate within 24 hours. If he develops chest pain, he needs to go to the hospital for further treatment. Rheumatoid arthritis 02/06/2021 Overview (02/06/2021): Since age 30, congenital arm deformations. Stage 3a chronic kidney disease 09/22/2020 Hypertension 09/22/2020 Dyslipidemia 03/02/2019 Overview (03/10/2022): Last Assessment & Plan: Well-controlled. Benign prostatic hyperplasia 11/23/2018 Overview (02/06/2021): Seen by urology at [facility] 01/11/2020 Calculus of gallbladder with cholecystitis 11/24 Resolved Problems Problem Noted Date Diagnosed Date Resolved Date Acute nontraumatic kidney injury 09/22/2020 02/09/2021 Osteoarthritis 03/02/2019 02/09/2021 Overview (02/06/2021): R knee Immunizations Name Administration Dates Next Due Influenza Split High Dose Pr eservative Free IM 03/08/2020 Pfizer SARS-COV-2 09/25/2021,,03/22/2021,09/16,08/26/2020 Pneumococcal Polysaccharide 02/17/2021 Td 08/06/2021,12/17/2003 Family History Relation Status Comments Father Mother Social History Tobacco Use Types Packs/Day Years Used Date Smoking Tobacco: Never Smokeless Tobacco: Never Tobacco Cessation:Counseling Given: No Alcohol Use Standard Drinks/Week Comments Yes 0 (1 standard drink = 0.6 oz pure alcohol) Alcoholic Drinks/day: Occasional social drink Sex and Gender Information Value Date Recorded Sex Assigned at Not on file Legal Sex Male 4:50 PM EST Gender Identity Not on file Sexual Orientation Not on file Last Filed Vital Signs Vital Sign Reading Time Taken Comments Blood Pressure 146/81 03/12/2024 8:11 AM EDT Pulse 82 03/12/2024 8:11 AM EDT Temperature - - Respiratory Rate - - Oxygen Saturation 97% 03/12/2024 8:11 AM EDT Inhaled Oxygen Concentration - - Weight 85.1 kg (187 lb 9.6 oz) 03/12/2024 8:11 A M EDT Height 180.3 cm (5' 11 ) 03/12/2024 8:11 AM EDT Body Mass Index 26.16 03/12/2024 8:11 AM EDT Plan of Treatment Upcoming Encounters Date Type Department Care Team (Late st Contact Info) Description 03/12/2025 8:00 AM EDT Office Visit [facility] [address] [address] Lance Kimball MD [address] [address] Health Maintenance Due Date Last Done Comments Pneumococcal Vaccine: 65+ Years (2 of 2 - PCV) 02/17/2022 02/17/2021 Influenza Vaccine (#1) 2024 2, 03/08/2020 Hepatitis B Vaccine Aged Out No longe r eligible based on patient's age to complete this topic Insurance [facility] [employer] [employer] Care Teams Continuous Mining Machine Company Miner Relationship Specialty Start Date End Date Landon Caldwell MD PCP - General Internal Medicine 03/10/23
--- OUTSIDE RECORDS SUMMARY | 2024-07-17 09:36 | XMS_ITS | Encounter Summary ---
Author Organization [facility] Address [address] [place] [address] Care Team Providers Care Form Maker Name Role Phone Tristin Caldwell MD Primary Care Provider [phone] Reason for Visit * Reason Onset Date Comments Referral for 07/16/2024 07/13/2024 To [facility] Encounter Details Date Type Department Care Team ([facility] st Contact Info) Description 07/13/2024 Telephone Adult Medicine [facility] [address] [facility] [phone] Tristin Caldwell MD [address] [place] [address] Referral for 07/16/2024 (To [facility]) Social History Tobacco Use Types Packs/Day Years [...] on file documented as of this encounter Progress Notes * Jay Arriola MA - 07/16/2024 2:52 PM EST Pended referral. * Rush Segura - 07/13/2024 3:41 PM EST Nyasia from [facility] called requesting a referral to Senia Terrazas MD Referral Request: What insurance does the patient have today? [place] Referrals cannot be processed if the insurance is not accurate. If the insurance listed above in red is NO BILLING INFORMATION FOUND FOR THIS ENCOUTNER The patients correct insurance must be obtained and registered in [facility] or their referral can not be processed. Is this a retro request? no. If yes for what date of service do you need the retro referral? not applicable Who is calling to request this referral? Nyasia from [facility] If the caller is not the patient, what is their name? not applicable Ask the patient WHO referred them to this specialty: FIRST and LAST NAME of SPECIALIST PATIENT is seeing: Senia Terrazas MD - What specialty is this? Cardi DIAGNOSIS Patient is being seen for (Not a body part or a procedure): ICD-10-CM diagnosis code for unspecified atrial fibrillation Have you seen this SPECIALIST for this PROBLEM/DX before? If YES, when? Yes. 12/08/2023 Have you checked REVIEW or the APPT DESK to see if this referral has already been done or has visits left? yes Is this visit: Follow Up Address of Specialist: [address] [facility] [address], [place] [address] Phone # of Specialist: Fax #: (if applicable): [phone] Does patient have an appointment scheduled?: yes Date of appointment- (including a retro-request): 07/16/2024 Is this appointment related to: Not MVA, worker compensation, or surgery related documented in this encounter Plan of Treatment Upcoming Encounters Date Type Department Care Team (Late st Contact Info) Description 07/23/2024 8:30 AM EST Ancillary Procedure [facility] - [address] [facility] [address] [place] [phone] 10/16/2024 1:15 PM EDT Office Visit Adult Medicine - [place] [address] [place] [address] Tristin Caldwell MD [address] [place] [address] documented as of this encounter Visit Diagnoses Diagnosis Atrial fibrillation, unspecified type (CMS/[facility])- Primary Encounter for adjustment or management of cardiac device documented in this encounter Care Teams Form Maker Relationship Specialty Start Date End Date Tristin Caldwell MD [address] [place] [address] PCP - General 04/27/22 documented as of this encounter
--- OUTSIDE RECORDS SUMMARY | 2024-07-17 09:36 | XMS_ITS | Encounter Summary ---
Author Organization [facility] Address [address] [place] [address] Care Team Providers Care Supervisor Travel Information Center Name Role Phone Tristin Caldwell MD Primary Care Provider [phone] Encounter Details Date Type Department Care Team (Late Contact Info) Description 07/10/2024 9:50 AM EST Ancillary Procedure [facility] - [facility] [address] [facility] [address] [place] [address] Social History Tobacco Use Types Packs/Day Years [...] on file documented as of this encounter Plan of Treatment Upcoming Encounters Date Type Department Care Team (Late Contact Info) Description 07/23/2024 8:30 AM EST Ancillary Procedure [facility] [address] [facility] [address] [place] [address] 10/16/2024 1:15 PM EDT Office Visit Adult Medicine - [place] [address] [place] [phone] Tristin Caldwell MD [address] [place] [address] documented as of this encounter Procedures Procedure Name Priority Date/Time Associated Diagnosis Comments CARDIAC DEVICE CHECK- REMOTE- MURJ Routine 07/10/2024 9:46 AM EST documented in this encounter Results * Cardiac device check - Remote- MURJ (07/10/2024 9:46 AM EST) Date Time Interrogation Session [id number] CV DEVICE CHECK Type Interrogation Session Remote CV DEVICE CHECK Implantable Pulse Generator Gauger Chief MDT CV DEVICE CHECK Implantable Pulse Generator Type IPG CV DEVICE CHECK Implantable Pulse Generator Model Elsa XT DR MRI [id number] CV DEVICE CHECK Implantable Pulse Generator Serial Number [id number] CV DEVICE CHECK Implantable Pulse Generator Implant Date [id number] CV DEVICE CHECK Battery Remaining Longevity 140.0 CV DEVICE CHECK Battery Voltage 3.030 CV D EVICE CHECK Battery WORM [employer]ARM LABORER Trigger 2.625 CV DEVICE CHECK Battery Status Middle of Service CV DEVICE CHECK González Statistic RA Percent Paced 81.51 CV DEVICE CHECK González Statistic RV Percent Paced 0.05 CV DEVICE CHECK Atrial Tachy Statistic AT/AF Shelby Percent 0.00 CV DEVICE CHECK Lead Channel [...] MD CV IMPLANTABLE CARDI AC DEVICE PROCEDURES documented in this encounter Visit Diagnoses Not on filedocumented in this encounter Care Teams Supervisor Travel Information Center Relationship Specialty Start Date End Date Tristin Caldwell MD [address] [place] [id number] PCP - General 04/27/22 documented as of this encounter
== END 2024-07-17 09:36 | disposition home or self-care (01) ==
LOC: HO.HUSH 09:09
PROVIDERS: PCP Pediatrics; Visit Provider Urology
DX: N52.01 Erectile dysfunction due to arterial insufficiency (principal); N40.1 Benign prostatic hyperplasia with lower urinary tract symptoms
CPT/HCPCS: 99214

== ENCOUNTER → 2024-07-17 09:09 | Outpatient (BNVA) | payer MEDICARE, SELFPAY | PROVIDERS: PCP Pediatrics; Visit Provider Urology ==

== ENCOUNTER 2025-01-30 08:20 | Outpatient (AMB) | payer MEDICARE, SELFPAY ==
--- NOTE | 2025-01-30 08:23 | MHC.OFFVIS ---
Intake Visit Reasons: 6m/PVR Intake Note: Patient is present for 6MO FOLLOW UP Urology Medication:TERAZOSIN, TADALAFIL, FINASTERIDE, ALFUZOSIN Blood Thinner:NONE Software Trainer Required: No Accompanied by: Self / Same As Patient Allergies No Known Allergies Allergy (Verified 01/30/25 08:24) HPI Comments Details: ?Clifton SHARPE is a very pleasant male. He is a patient of Dr York. He is seen for the following urologic conditions. - lower urinary tract symptoms - erectile dysfunction Six-month follow-up Continue with finasteride Tuesday, Tuesday, Tuesday Good response to alfuzosin and would like to stone this Switched erectile medications to Cialis 20 mg on demand Urinary Symptoms Review - Improved bladder emptying with alfuzosin, no dizziness reported - Nocturnal dosing of alfuzosin to minimize daytime dizziness - Reduced frequency of urination, no urgency or incontinence Lower Urinary Tract Symptoms:? Current visit is for?further evaluation of, lower urinary tract symptoms, predominate obstructive symptoms - Good response to maximum terazosin. Has noticed improved stream. Did have some dizziness.? Current treatment includes?07/07, terazosin 10mg, finasteride ? Prior treatments include?since 2009 flomax/tamsulosin, 5-alpha reductase ?- stopped 5AR due to SE concerns.? Prostate Symptom Score?Moderate (9-19), Bother 3 ? Symptoms include?07/07 , incomplete emptying, weak stream, nocturia (>2), and are progressing ?07/07 , urgency, nocturia (>2), and are improving.? Results from testing include? cystoscopy ?> 4 cm prostate urethral length, apple shaped intrusion 07/07 ? Prior Prostate Score?moderate.? PSA?2016 2.8, 03/11 0.77, 04/12 0.9 ? Prostate volume?30-50gm.? Associated conditions? CAD ?Yes stent 2006 ? CVA ?No ? diabetes ?No ? Testing at next visit will include?bladder scan, uroflow.? Erectile dysfunction Responsive to Cialis 20 mg on demand PFSH Medical History Benign prostatic hyperplasia with lower urinary tract symptoms Erectile dysfunction due to arterial insufficiency Heart attack Hyperlipidemia Poor urinary stream Surgical History History of surgery Review of Systems Const Denies chills and Denies fever(s) Card Reports no additional complaints and Denies syncope Resp Denies cough GI Denies abdominal pain and Denies heartburn Reports as per HPI and Denies change in libido Neuro Denies syncope Psych Denies change in libido Endo Denies change in libido Physical Exam Const General: cooperative, healthy appearing, comfortable and no acute distress Orientation/consciousness: patient oriented x3 HEENT Face and sinus: Yes normal facial exam Mouth: moist mucous membranes Neck Neck: Yes normal visual inspection, Yes full ROM and Yes trachea midline Chest Chest palpation & inspection: normal inspection of the chest Resp Effort & Inspection: normal respiratory effort, able to speak in complete sentences and no respiratory distress GI Inspection: Yes normal to inspection Back/Spine/Pelvis Cervical Spine: normal cervical lordosis Thoracic/Lumbar Spine: thoracic and lumbar spine normal to inspection Skin General skin exam: no rashes or lesions noted Neuro General: patient oriented x3, gait normal, tone normal and moves all extremities Extrem General: Yes normal to inspection and Yes capillary refill normal Office Procedures Post Void Residual Post Residual Void Post Void Residual (PVR): 48 [id number] Void Residual by ultrasound Results AMB Urinalysis, Automated UA Leukoctes 0 [place]/uL Last Edit by SARAH Yoon on 01/30/25 08:44 UA Nitrite Negative Last Edit by SARAH Yoon on 01/30/25 08:44 UA Urobilinogen 0.2 mg/dL Last Edit by SARAH Yoon on 01/30/25 08:44 UA Protein 0 mg/dL Last Edit by SARAH Yoon on 01/30/25 08:44 UA pH 6.0 Last Edit by SARAH Yoon on 01/30/25 08:44 UA Blood 1 Shawn/uL Last Edit by Aud[facility] on 01/30/25 08:44 UA Specific [place] 1.015 Last Edit by SARAH Yoon on 01/30/25 08:44 UA Ketone Negative Last Edit by SARAH Yoon on 01/30/25 08:44 UA Bilirubin 0 mg/dL Last Edit by Audra Parker [facility] on 01/30/25 08:44 UA Glucose 0 mg/dL Last Edit by Audra Parker [facility] on 01/30/25 08:44 Results Reviewed Results Reviewed: Laboratory Last Values Urine pH (Auto) 6.0 01/30/25 08:39 Specific [place] (Auto) 1.015 01/30/25 08:39 Urine Protein (Auto) 0 mg/dL 01/30/25 08:39 Glucose (UA)(Auto) 0 mg/dL 01/30/25 08:39 Urine Ketones (Auto) Negative 01/30/25 08:39 Urine Blood (Auto) 1 Shawn/uL 01/30/25 08:39 Urine Nitrite (Auto) Negative 01/30/25 08:39 Urine Bilirubin (Auto) 0 mg/dL 01/30/25 08:39 Urine Urobilinogen (Auto) 0.2 mg/dL 01/30/25 08:39 Leukocyte Esterase (Auto) 0 [place]/uL 01/30/25 08:39 Assessment & Plan Assessment & Plan (1) Benign prostatic hyperplasia with lower urinary tract symptoms: Code(s): N40.1 - Benign prostatic hyperplasia with lower urinary tract symptoms Category: Medical (2) Erectile dysfunction due to arterial insufficiency: Code(s): N52.01 - Erectile dysfunction due to arterial insufficiency Category: Medical Plan Plan 1. Benign Prostatic Hyperplasia - Continue alfuzosin daily - Continue finasteride every other day 2. Erectile Dysfunction - Tadalafil prescribed, consider dose increase 3. Pacemaker In Situ - Pacemaker on standby, no issues 4. Preventative Care: Regular Exercise Regimen - Use treadmill with incline Discussion Notes The patient was advised to continue alfuzosin for bladder management and finasteride for prostate health. Tadalafil was discussed for erectile dysfunction, with a possible dose increase if needed. The pacemaker is functioning well on standby. Regular exercise was encouraged to maintain cardiovascular health. Patient Instructions - Continue taking alfuzosin daily and finasteride every other day. - Consider increasing tadalafil dose if needed, but be aware of potential headaches. - Maintain regular exercise using the treadmill with an incline. Orders: Orders AMB Post Void Residual by ultrasound Today N40.1 - Benign prostatic hyperplasia with lower urinary tract symptoms AMB Urinalysis Automated Today N40.1 - Benign prostatic hyperplasia with lower urinary tract symptoms Medications: Refilled alfuzosin ER Take before bedtime 10 mg PO BEDTIME 90 tabs 3RF 90 days N40.1 - Benign prostatic hyperplasia with lower urinary tract symptoms tadalafil On demand medication take 60 minutes before intended activity BIN N [facility] [address] [id number] 20 mg PO ONCE PRN 30 tabs 0RF sexual activity 30 days N52.01 - Erectile dysfunction due to arterial insufficiency finasteride 5 mg PO DAILY 90 tabs 3RF 90 days N40.1 - Benign prostatic hyperplasia with lower urinary tract symptoms Patient Instructions: This note is constructed using voice recognition software. While every effort has been made to ensure accuracy art history instructor errors may have been included. Imaging studies, laboratory and physical exam results were discussed and reviewed in detail. No major barriers to patient understanding were identified. An opportunity to ask questions regarding the treatment plan was provided. All questions were answered. The patient expressed understanding and agreement with the above treatment plan. The patient is aware they should contact our office by phone for worsening of their current condition or the appearance of new urologic symptoms. Compliance is encouraged with any medications and followup testing that is ordered. It is a privilege to participate in the urologic care of your patient. If you have any questions or concerns regarding treatment for the above conditions, or other urologic issues, please do not hesitate to contact me. The office telephone contact is [phone]. Sincerely, Dr Nathaniel Mora MD, [facility] Compassionate Specialist Care for the Genitourinary System Coding Level of Care Code Est Pt Level 3 (55746) Complex EM visit Add On G2211 Diagnoses Benign prostatic hyperplasia with lower urinary tract symptoms N40.1 Erectile dysfunction due to arterial insufficiency N52.01 CPT Codes Post Residual Void - PVR CPT Code: 56729-[id number] Void Residual by ultrasound ([id number])
--- OUTSIDE RECORDS SUMMARY | 2025-01-30 08:28 | XMS_ITS | Clinical Summary ---
Author Organization [facility] Address [address] [place] [address] Phone Care Team Providers Care Brine Tank Separator Operator Name Role Phone Landon Caldwell MD Primary [...] 11/23/2018 Overview (02/06/2021): Seen by urology at [facility] 01/11/2020 Calculus of gallbladder with cholecystitis 11/24 Resolved Problems Problem Noted Date Diagnosed Date Resolved Date Acute nontraumatic kidney injury 09/22/2020 02/09/2021 Osteoarthritis 03/02/2019 02/09/2021 Overview (02/06/2021): R knee Immunizations Immunization Administration Dates Next Due Influenza Split High [...] Care Team (Late st Contact Info) Description 03/20/2025 8:20 AM EDT Office Visit [facility] [address] [address] Lance Kimball MD [address] [address] Health Maintenance Due Date Last Done Comments Pneumococcal Vaccine: 50+ Years (2 of 2 - PCV) 02/17/2022 02/17/2021 Influenza Vaccine (#1) 2025 2, 03/08/2020 Pneumococcal Vaccine: Peds (0 to 5 Years) and At-Risk Patients (6 to 49 Years) Discontinued 02/17/2021 Hepatitis B Vaccine Aged Out No longe r eligible based on patient's age to complete this topic Insurance [employer] Medicare [employer] Medicare Care Teams Brine Tank Separator Operator Relationship Specialty Start Date End Date Landon Caldwell MD PCP - General Internal Medicine 03/10/23
--- OUTSIDE RECORDS SUMMARY | 2025-01-30 08:28 | XMS_ITS | Clinical Summary ---
Author Organization [facility] Address [address] [place] [address] Care Team Providers Care Children'S Librarian Name Role Phone Juvencio Gar Primary Care Provider Unavailabl e Immunizations Immunization Administration Dates Next Due Td (adult), adsorbed [...] - 2023-2 5 season) 2024 Influenza (#1) 2025 HPV Vaccine (No Doses Required) Completed Hep A Aged Out No longer eligi [...] Zoster (Zostavax) Discontinued Insurance [employer] Care Teams Children'S Librarian Relationship Specialty Start Date End Date Juvencio Gar PCP - General 09/11/05
--- OUTSIDE RECORDS SUMMARY | 2025-01-30 08:28 | XMS_ITS | Clinical Summary ---
Author Organization [facility] [address] [facility] lding Address [address] [place] [address] Phone Care Team Providers Care Photogrammetric Technician Name Role Phone Tristin Caldwell MD Primary Care Provider [phone] Allergies No known active allergies Medications aspirin 81 mg EC tablet Take 1 tablet (81 mg total) by mouth. Active finasteride (PROSCAR) 5 mg tablet Take 1 tablet (5 mg total) by mouth 1 (one) time each day. Active Xarelto 20 mg tablet TAKE 1 TABLET BY MOUTH DAILY WITH EVENING MEAL 90 tablet 1 5 Active famotidine (PEPCID) 40 mg tablet Take 1 tablet (40 mg total) by mouth 1 (one) time each day. 90 tablet 1 5 Active cholecalciferol (VITAMIN D-3) 50 mcg (2,000 unit) capsule Take 1 capsule (2,000 Units total) by mouth 1 (one) time each day. 90 capsule 1 5 Active alfuzosin (UROXATRAL) 10 mg 24 hr tablet 5 Active tadalafiL (CIALIS) 20 mg tablet TAKE 1 TABLET (20 MG) ORALLY ONCE NEEDED FOR SEXUAL ACTIVITY 60 MINUTES BEFORE INTENDED ACTIVITY 5 Active atorvastatin (LIPITOR) 80 mg tablet TAKE 1 TABLET BY MOUTH EVERY DAY IN THE EVENING 90 tablet 1 5 Active benzonatate (TESSALON) 100 mg capsuleIndicati ons:Subacute cough Take 1 capsule (100 mg total) by mouth 3 (three) times a day if needed for cough. Do not crush or chew. 42 capsule 5 01/31/20 25 Active albuterol HFA (ProAir HFA) 90 mcg/actuation inhalerIndicati ons:Subacute cough Inhale 2 puffs by mouth every 4 (four) hours if needed for wheezing or shortness of breath. 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 LV systolic function is normal. Will continue current regimen. Due for lipid profile. Assessment & Plan (07/16/2024 4:16 PM EST): Orders: ECG 12 lead CKD (chronic kidney disease) , stage III (CMS/HCC V24, CMS/HCC V28) 05/16/2024 Rheumatoid arthritis (CMS/HCC V24, CMS/HCC V28) 05/16/2024 Overview (05/16/2024): Since age 30, congenital [...] pacemaker. We will arrange dual-chamber pacemaker. Tachycardia-bradycardia (CMS/HCC V24, CMS/[facility] V2 8) 03/16/2022 Atrial fibrillation (CMS/HCC V24, CMS/HCC V28) 0 03/03/2022 Overview (05/16/2024): hosp 03/11 Last Assessment [...] (05/16/2024): Last Assessment & Plan: Well-controlled. Old TN (myocardial infarction) 03/02/2019 Osteoarthritis 03/02/2019 Overview (05/16/2024): R knee BPH (benign prostatic hyperplasia) 11/23/2018 Overview (05/16/2024): Seen by urology at [facility] 01/11/2020 Erectile dysfunction 11/23/2018 Encounters Date Type Department Care Team Description 01/11/2025 1:20 PM EDT Ancillary Procedure [facility] - [facility] [address] [facility] [address] [place] [address] 12/31/2024 8:30 AM EDT - 12/31/2024 11:59 PM EDT Hospital Encounter Xray - [facility] [address] [place] [address] Subacute cough Discharge Disposition: Home or Self Care 12/31/2024 8:00 AM EDT Office Visit Adult Medicine - [facility] [address] [facility] [place] [phone] Aaron Bailey PA Subacute cough (Primary Dx) 12/27/2024 Telephone Adult Medicine [address] [place], [place] [phone] Tristin Caldwell MD Cough; Nasal Congestion from Last 3 Months Immunizations Name Administration Dates Next Due Influenza Quadravalent, 0.5ml (Fluad) 65yo and o lder 03/08/2020 Influenza Quadravalent, 0.5m l (Fluzone High-dose) 65yo and older 04/19/2022 Influenza trivalent, 0.5mL (Fluad) 65yo and olde r 04/19/2022,03/08/2020 Pfizer (ages 12 & older) Bivalent, COVID-19 03/22 Pfizer (ages 12 & older) PRINCE S-CoV-2 COVID-19, mRNA, LNP-S, ronda-sucrose, preservative free 09/25/2021 Pfizer SARS-CoV-2 COVID-19, mRNA, LNP-S, preservative free 09/25/2021,03/22/2021 Pneumococcal polysaccharide 23 valent (Pneumovax 23) 2yo and older 02/17/2021 Td Tetanus diptheria (Tdvax) 7yo and older 08/06,12/17/2003 Zoster recombinant (Shingrix) 19yo and older 12/2022,09/25/2021 Surgical History Surgery Date Site/Laterality Comments CHOLECYSTECTOMY [...] CKD (chronic kidney disease) , stage III (CMS/HCC V24, CMS/HCC V28) DX:CKD (chronic kidney dise ase), stage III (HCC) Rheumatoid arthritis (CMS/ C V24, CMS/HCC V28) DX:Rheumatoid arthritis (HCC ); COMMENT: Since age 30, congenital arm deformations. GERD (gastroesophageal reflux disease) DX:GERD (gastroesophageal reflux disease); COMMENT: Dr Bower, last colonoscopy 2011 Hyperlipidemia 03/02/2019 DX:Hyperlipidemi a Palencia's esophagus DX:Palencia's esophagus; COMMENT: w/ esophageal stricture Old TN (myocardial infarction) 03/02/2019 D X:Old TN (myocardial infarction) Osteoarthritis 03/02/2019 DX:Osteoarthriti s; COMMENT: R knee Family History Medical History Relation Name Comments No Known Problems Daughter 1 No Known Problems Daughter 2 TWIN No Known Problems Father No Known Problems Mother Alcohol abuse Sister Lung cancer Sister Other: tobacco abuse Sister No Known Problems Son 1 TWIN Drug abuse Son 2 Relation Name Status Comments Daughter 1 Alive Daughter 2 TWIN Alive Father Mother Sister Alive Son 1 TWIN Alive Son 2 Alive Social History Tobacco Use Types Packs/Day Years Used Date Smoking Tobacco: Never Smokeless Tobacco: Never Tobacco Cessation:Counseling Given: Not Answered Alcohol Use Standard Drinks/Week Comments Yes 0 (1 standard drink = 0.6 oz pur e alcohol) RARELY Housing Instability Answer Date Recorde d Are you worried that in the next 2 months you may not have stable housing? No 10/13/2024 Food Access & Nutrition Answer Date Rec orded Do you have access to a vari ety of food including fruits and vegetables? Yes 10/15/2024 Access to Healthcare Answer Date Record ed Within the last 3 months, ho marc many times did you visit the emergency department for your medical care? 0 10/15/2024 Health Literacy Answer Date Recorded How often do you need to hav e someone help you when you read instructions, pamphlets, or other written material from your doctor or pharmacy? Never 10/15/2024 Caregiver: How often do you need to have someone help you when you read instructions, pamphlets, or other written material from your doctor or pharmacy? Not on file 10/15/2024 Financial Risk Answer Date Recorded How hard is it for you to pa y for the very basics like food, housing, medical care, and air conditioning / heating? Not very hard 10/15/2024 Transportation Answer Date Recorded Has the lack of transportati on kept you from meetings, work, or from getting things needed for daily living? No Has the lack of transportati on kept you from medical appointments or from getting medications? No 10/15/2024 Social Isolation Answer Date Recorded How often do you feel lonely or isolated from th ose around you? Never 10/15/2024 Food Risk Answer Date Recorded Within the past 12 months we worried whether our food would run out before we got money to buy more. Never true 10/15/2024 Within the past 12 months th e food we bought just didn't last and we didn't have money to get more. Never true 10/15/2024 Dependent Care Answer Date Recorded Do you need help finding or paying for care for your loved ones. For example, early childhood assistant or elderly care for an older adult? No 10/15/2024 Education Answer Date Recorded Do you think completing more education or training, like finishing a GED, going to college, or learning a trade, would be helpful for you? No 10/15/2024 Employment and Income Answer Date Recor ded During the last four weeks, have you been actively looking for work? No 10/15/2024 Living Situation Answer Date Recorded What is your living situation? 0 10/15/2024 Sex and Gender Information Value Date Recorded Sex Assigned at Not on file Legal Sex Male 3:46 PM EST Gender Identity Not on file Sexual Orientation Not on file Occupation Industry Job Start Date Job End Date RETIRED Not on file Not on file Not on file Obstetrics History Last Filed Vital Signs Vital Sign Reading Time Taken Comments Blood Pressure 121/60 12/31/2024 7:43 AM EDT Pulse 73 12/31/2024 7:43 AM EDT Temperature 37 C (98.6 F) 12/31/2024 7:43 AM EDT Respiratory Rate 15 12/31/2024 7:43 AM EDT Oxygen Saturation 96% 07/16/2024 3:07 PM EST Inhaled Oxygen Concentration - - Weight 82.6 kg (182 lb) 12/31/2024 7:43 AM EDT Height 180 cm (5' 10.87 ) 12/31/2024 7:43 AM EDT Body Mass Index 25.48 12/31/2024 7:43 AM EDT Plan of Treatment Upcoming Encounters Date Type Department Care Team (Late st Contact Info) Description 07/23/2025 8:30 AM EST Ancillary Procedure [facility] - [address] [facility] [address] [place] [id number] Health Maintenance Due Date Last Done Comments RSV Immunization Adult Patients (1 - 1-dose 75+ series) 2021 Pneumococcal Vaccine: 50+ Years (2 of 2 - PCV) 02/17/2022 02/17/2021 Hepatitis C Screening 05/29/2022 COVID-19 Vaccine ( season) 2024 02/26/2024, 08/21/2023, 03/26/2023, Additional history exists Influenza Vaccine (#1) 2025 2, 04/19/2022, 03/08/2020, Additional history exists Hypertension/CHF/CAD Annual BMP Blood Test 03/09/2025 03/09/2024, 03/09/2024, 03/09/2024, Additional history exists Medicare Annual Wellness Visit 10/15/2025 10/15/2024 Social Influencers of Health Screening 10/15/2025 10/15/2024 Falls Risk Assessment 12/31/2025 12/31/2024 Cholesterol Screening (Lipid Panel) 04/12/2029 04/12/2024, 04/12/2024 DTaP,Tdap,and Td Vaccines (3 - Td or Tdap) 08/06/2031 08/06/2021, 12/17/2003 Zoster Vaccines Completed 03/26/2023, 09/25/2021 Depression Screening Completed 12/28/2024 HIB Vaccines Aged Out No longer eligi [...] patient's age to complete this topic Meningococcal B Vaccine Aged Out No l onger eligible based on patient's age to complete this topic RSV Immunization Patients Under 20 months Aged Out No longer eligible based on patient's age to complete this topic Varicella Vaccines Aged Out No longer eligible based on patient's age to complete this topic Medical Devices Implanted Type Area Sales Clerk Food Device Identifier Shelf Expiration Date Model / Serial / Lot Medt-Card Nibley Xt Dr Galeas [id number] Implanted: (Quantity not on file) Cardiac Pacemaker [employer] - CARDIAC RHYTH-CRDM HARJIT XT DR MRI [id number] / [id number] / Medt-Card Harjit Xt Dr Mri [id number] Implanted: (Quantity not on file) Cardiac Pacemaker [employer] - CARDIAC RHYTH-CRDM HARJIT XT DR ELOISE / [id number] / Procedures Procedure Name Priority Date/Time Associated Diagnosis Comments CARDIAC DEVICE CHECK- REMOTE- MURJ Routine 01/11/2025 1:19 PM EDT XR CHEST 2 VIEWS Routine 12/31/2024 8:44 AM EDT Subacute cough LIPID PANEL Routine 04/12/2024 HM ANNUAL BMP BLOOD TEST Routine 03/09/2024 from Last 3 Months or Most Recently Relevant to Health Maintenance Results * Cardiac device check - Remote- MURJ (01/11/2025 1:19 PM EDT) Date Time Interrogation Session [id number] CV DEVICE CHECK Type Interrogation Session Remote CV DEVICE CHECK Implantable Pulse Generator Sales Clerk Food MDT CV DEVICE CHECK Implantable Pulse Generator Type IPG CV DEVICE CHECK Implantable Pulse Generator Model Harjit XT DR MRI [id number] CV DEVICE CHECK Implantable Pulse Generator Serial Number [id number] CV DEVICE CHECK Implantable Pulse Generator Implant Date 20220604 CV DEVICE CHECK Battery Remaining Longevity 133.0 CV DEVICE CHECK Battery Voltage 3.020 CV D EVICE CHECK Battery TELESCOPE REPAIRER Trigger 2.625 CV DEVICE CHECK Battery Status Middle of Service CV DEVICE CHECK González Statistic RA Percent Paced 83.18 CV DEVICE CHECK González Statistic RV Percent Paced 0.05 CV DEVICE CHECK Atrial Tachy Statistic AT/AF Slayden Percent 0.00 CV DEVICE CHECK Lead Channel Sensing Intrinsic Amplitude 1.875 CV DEVICE CHECK Lead Channel Setting Sensing Sensitivity 0.30 CV DEVICE CHECK Lead Channel Impedance Value 513 CV DEVICE CHECK Lead Channel Pacing Threshold Amplitude 0.500 CV DEVICE CHECK Lead Channel Pacing Threshold Pulse Width 0.4 CV DEVICE CHECK Lead Channel RA Pacing Threshold Date 2025-01-01 CV DEVICE CHECK Lead Channel Setting Pacing Amplitude 1.500 CV DEVICE CHECK Lead Channel Setting Pacing Pulse Width 0.4 CV DEVICE CHECK Lead Channel Sensing Intrinsic Amplitude 7.000 CV DEVICE CHECK Lead Channel Setting Sensing Sensitivity 0.90 CV DEVICE CHECK Lead Channel Impedance Value 399 CV DEVICE CHECK Lead Channel Pacing Threshold Amplitude 0.625 CV DEVICE CHECK Lead Channel Pacing Threshold Pulse Width 0.4 CV DEVICE CHECK Lead Channel RV Pacing Threshold Date 2025-01-01 CV DEVICE CHECK Lead Channel Setting Pacing [...] 6 CV DEVICE CHECK Date of Service 2025-01-11 CV DEVICE CHECK Anatomical Region Laterality Modality Device Interroga tion 01/01/2025 7:33 PM EDT Impressions 01/11/2025 1:04 PM EDT Normal Remote: With Events * Normal Device Function * Events or Alerts: 8 *Sinus Tachycardia * Battery: OK, 11.08 yrs * Sensing, impedance and thresholds reviewed * Programmed parameters reviewed * Presenting rhythm reviewed * Heart Rate Histograms reviewed Narrative Procedure Note Jaswinder Barnes MD - 01/11/2025 IMPRESSION: Normal Remote: With Events * Normal Device Function * Events or Alerts: 8 *Sinus Tachycardia * Battery: OK, 11.08 yrs * Sensing, impedance and thresholds reviewed * Programmed parameters reviewed * Presenting rhythm reviewed * Heart Rate Histograms reviewed us Jaswinder Barnes MD CV IMPLANTABLE CARDIAC DEVICE PROCEDURES Final Result * XR Chest 2 Views (12/31/2024 8:44 AM EDT) Anatomical Region Laterality Modality Body Radiographic Marisabel ging 12/31/2024 12:1 8 PM EDT Impressions 12/31/2024 12:19 PM EDT No acute cardiopulmonary process. -------- FINAL REPORT -------- Dictated By: Andrés Portillo Dictated Date: 12/31/2024 12:18 ET Assigned Physician: Andrés Portillo Reviewed and Electronically Signed By: Andrés Portillo Signed Date: 12/31/2024 12:19 ET Workstation ID: [id number] Transcribed By: Self Edit Transcribed Date: 12/31/2024 12:18 ET Narrative 12/31/2024 12:19 PM EDT HISTORY: Cough, persistent TECHNIQUE: PA and lateral radiographs of the chest COMPARISON: None FINDINGS: There is a normal cardiomediastinal silhouette. Atherosclerosis of the thoracic aorta. The lungs are clear. Moderate narrowing of the bilateral acromioclavicular joints. Mild degenerative changes of the thoracic spine. Surgical king overlying the right upper quadrant. Procedure Note Andrés Portillo MD - 12/31/2024 HISTORY: Cough, persistent TECHNIQUE: PA and lateral radiographs of the chest COMPARISON: None FINDINGS: There is a normal cardiomediastinal silhouette. Atherosclerosis of thethoracic aorta. The lungs are clear. Moderate narrowing of the bilateralacromioclavicular joints. Mild degenerative changes of the thoracic spine.Surgical king overlying the right upper quadrant. IMPRESSION: No acute cardiopulmonary process. -------- FINAL REPORT -------- Dictated By: Andrés Portillo Dictated Date: 12/31/2024 12:18 ET Assigned Physician: Andrés Portillo Reviewed and Electronically Signed By: Andrés Portillo Signed Date: 12/31/2024 12:19 ET Workstation ID: [id number] Transcribed By: Self Edit Transcribed Date: 12/31/2024 12:18 ET Aaron VIDAL IMG XR PROCEDURES Final Resul t * (ABNORMAL) Lipid panel (04/12/2024) LDL/HDL Ratio 2 0 - 4 Triglycerides 75 0 - 150 mg/dL Cholesterol 88 0 - 200 mg/dL HDL 39(A) >=40 mg/dL LDL Cholesterol 34 0 - 100 mg/dL Blood Venous blood specimen / Unknown Historical Provider LAB BLOOD ORDERABLES Nohemi l Result * Annual BMP Blood Test (03/09/2024) Annual BMP Blood Test abstracted Historical Provider HEALTH MAINTENANCE Final Result from Last 3 Months or Most Recently Relevant to Health Maintenance Insurance [place] [id number] [employer] Care Teams Photogrammetric Technician Relationship Specialty Start Date End Date Tristin Caldwell MD [address] [place] [id number] PCP - General 04/27/22
== END 2025-01-30 09:07 | disposition home or self-care (01) ==
LOC: HO.HUSH 08:21
PROVIDERS: PCP Pediatrics; Visit Provider Urology
DX: N40.1 Benign prostatic hyperplasia with lower urinary tract symptoms (principal); N52.01 Erectile dysfunction due to arterial insufficiency
CPT/HCPCS: 99213; G2211

== ENCOUNTER → 2025-01-30 08:20 | Outpatient (BNVA) | payer MEDICARE, SELFPAY | PROVIDERS: PCP Pediatrics; Visit Provider Urology | DX: N40.1 Benign prostatic hyperplasia with lower urinary tract symptoms (principal); N52.01 Erectile dysfunction due to arterial insufficiency | CPT/HCPCS: 51798; 81003; 99212 ==